=== PATIENT | male | born 1975 | race Caucasian/White ===

== ENCOUNTER → 2017-04-07 | Outpatient (REF) | payer BC, OTHER | LOC: M SMT 14:30 | PROVIDERS: ATTEND Nurse Practitioner Women's Health | DX: R30.0 Dysuria (principal) ==

== ENCOUNTER → 2017-08-27 | Outpatient (REF) | payer BC ==
[2017-08-27 16:06] LABS: FOLATE 12.6 NG/ML; VITAMIN B12 LEVEL 423 PG/ML
[2017-08-27 16:34] LABS: FREE T4 1.14 NG/DL (0.76-1.46); TOTAL PROTEIN 7.2 GM/DL (6.4-8.2)
[2017-08-27 16:43] LABS: ESTIMATED AVERAGE GLUCOSE 120 MG/DL (60-110); HEMOGLOBIN A1c 5.8 %
[2017-08-30 00:07] LABS: ANA (HEP2) Negative (.)
== END ==
LOC: M LABNEURO 15:09
DX: G60.3 Idiopathic progressive neuropathy (principal)
CPT/HCPCS: 82525